=== PATIENT | male | born 1985 | race Caucasian/White ===

== ENCOUNTER 2020-04-20 11:45 | Emergency (ER) | payer OTHER, SELFPAY ==
--- NOTE | 2020-04-20 11:52 | ED.URI ---
HPI - URI/Sore Throat General Chief Complaint: Skin/Abscess/Foreign Body Stated Complaint: INFECTION Source: patient Mode of arrival: ambulatory Limitations: no limitations History of Present Illness HPI Narrative: Patient is a 35-year-old male who presents complaining of infection to right forearm. He is unsure if it may be started out as a bug bite, reports redness and tenderness x1 day, increasing this a.m. He denies taking nkec-guc-vpiywau medications for pain or using topical creams. Patient reports family history of MRSA, but states he has never had MRSA himself. MD elicited complaint: other (insect bite) Related Data Allergies Allergy/AdvReac Type Severity Reaction Status Date / Time No Known Allergies Allergy Verified 04/20/20 11:54 Review of Systems Review of Systems: Narrative: CONSTITUTIONAL: Denies fever, chills, or sweats. EYES: Denies visual changes, redness, or discharge. ENT: Denies rhinorrhea, congestion, sore throat, or otalgia. CARDIOVASCULAR: Denies chest pain, palpitations, or edema. RESPIRATORY: Denies cough or dyspnea. GASTROINTESTINAL: Denies abdominal pain, nausea, vomiting, or diarrhea. GENITOURINARY: Denies dysuria or hematuria. SKIN: Redness and tenderness to right forearm MUSCULOSKELETAL: Denies back pain, joint pain, or myalgia. NEUROLOGIC: Denies headache, numbness, dizziness, or weakness. PSYCHIATRIC: Denies anxiety or depression. PMFSH Past Medical History Medical History (Updated 04/20/20 @ 12:10 by ANTONIO Jensen) No significant past medical history Surgical History Surgical History (Updated 04/20/20 @ 12:02 by ANTONIO Jensen) No significant past surgical history Family History Family History (Updated 04/20/20 @ 12:03 by ANTONIO Jensen) Mother MRSA infection Social History Social History (Updated 04/20/20 @ 12:04 by ANTONIO Jensen) Smoking status: Never smoker Alcohol intake: current Alcohol use details: socially Substance use: never Living arrangements: with family Exam Narrative: Exam Narrative: GENERAL: Well-appearing, well-nourished, and in no acute distress. HEAD: Normocephalic, atraumatic. EYES: No redness or drainage. Conjunctiva are normal. ENT: Mucous membranes pink and moist. CHEST: No respiratory distress. Clear to auscultation. HEART: Regular rate and rhythm. No murmur appreciated. Normal peripheral pulses. EXTREMITIES: Normal range of motion. No edema. SKIN: Approximate 7 cm circular area of erythema and edema to right forearm, no drainage noted NEURO: No focal deficits. Alert and oriented x3. Gait steady. PSYCH: Normal affect. No signs of depression or anxiety. Course Vital Signs Vital signs: Vital signs reviewed with patient. Patient hypertensive and tachycardic. Patient denies having PCP at this time. PCP referral given to patient. Patient instructed to follow-up with PCP about blood pressure within 3 days. MDM - URI/Sore Throat MDM Narrative Medical decision making narrative: Patient appears to have a 7 cm diameter area of cellulitis to right forearm. Patient to be treated with antibiotics at this time. Patient reports a strong family history of MRSA in individuals he lives with. No pustules or drainage noted. Patient to be treated with Keflex and to follow-up with PCP for arm as well as hypertension. Patient is stable for discharge at this time with patient follow-up within 3 days. Differential Diagnosis Differential diagnosis: Likely other (Cellulitis) Critical Care Time Critical Care Time Critical Care Time: No Discharge Plan Discharge Clinical Impression: Cellulitis Qualifiers: Site of cellulitis: extremity Site of cellulitis of extremity: upper extremity Laterality: right Qualified Code(s): L03.113 - Cellulitis of right upper limb Patient Disposition: Home, Self-Care Condition: Stable Instructions: Antibiotic Form, Cellulitis (ED) Additional Instructions: Take antibiotic
[2020-04-20 11:54] VITALS: BP 187/135; PULSE 122; RESP 20; TEMP 36.1; O2SAT 98
[2020-04-20 12:19] VITALS: BP 181/128; PULSE 111
== END 2020-04-20 12:23 | disposition home or self-care (01) ==
PROVIDERS: Emergency Provider Nurse Practitioner
DX: L03.113 Cellulitis of right upper limb (principal)
CPT/HCPCS: 99213; G0463

== ENCOUNTER 2022-03-18 12:55 | Emergency (ER) | payer OTHER, SELFPAY ==
--- NOTE | ~2022-03-18 | XR_ITS ---
EXAMINATION: XR elbow RT min 3V DATE: 03/18/2022 13:27 INDICATION: Right elbow pain post fall TECHNIQUE: Anteroposterior, two oblique and lateral views of the right elbow were obtained. COMPARISON: None. FINDINGS: Alignment is normal. No fracture. Mild osteoarthritis at the right elbow with mild nonuniform joint s pace narrowing at the ulnotrochlear articulation and small marginal osteophyte at the tip of the will noid process. No right elbow joint effusion.. Soft tissues are unremarkable. IMPRESSION: 1. No right elbow joint effusion or acute osseous abnormality. Reviewed, dictated and finalized at location A.
[2022-03-18 13:52] VITALS: BP 169/80; PULSE 128; RESP 24; TEMP 36.7; O2SAT 100
--- NOTE | 2022-03-18 15:57 | ED.UPPEXIN ---
HPI - Extremity Injury (Upper) General Chief Complaint: Extremity Injury, Upper Stated Complaint: fall,right arm pain History of Present Illness HPI narrative: 37-year-old male presents the emergency room for evaluation of right elbow pain. Patient states that he tripped and fell landing on his right elbow immediately prior to arrival. States the pain is worse when trying to extend the arm and with supination and pronation. States pain radiates into his right forearm. Did not take any medications prior to arrival to alleviate his symptoms. Related Data Allergies Allergy/AdvReac Type Severity Reaction Status Date / Time No Known Allergies Allergy Verified 04/20/20 11:54 Review of Systems Review of Systems: CONSTITUTIONAL: Denies fever, chills, or sweats. EYES: Denies visual changes, redness, or discharge. ENT: Denies rhinorrhea, congestion, sore throat, or otalgia. CARDIOVASCULAR: Denies chest pain, palpitations, or edema. RESPIRATORY: Denies cough or dyspnea. GASTROINTESTINAL: Denies abdominal pain, nausea, vomiting, or diarrhea. GENITOURINARY: Denies dysuria or hematuria. SKIN: Denies rash or itching. MUSCULOSKELETAL: Reports right elbow pain NEUROLOGIC: Denies headache, numbness, dizziness, or weakness. PSYCHIATRIC: Denies anxiety or depression. PMFSH Past Medical History Medical History No significant past medical history Surgical History Surgical History No significant past surgical history Family History Family History Mother MRSA infection Social History Social History Smoking status: Never smoker Alcohol intake: current Alcohol use details: socially Substance use: never Exam Narrative: GENERAL: Well-appearing, well-nourished, no physical limitations, and in no acute distress. HEAD: Normocephalic, atraumatic. EYES: Conjunctivae normal, PERRLA and EOMI. CHEST: Clear to auscultation. No respiratory distress. No wheezes rales or rhonchi. No tenderness. HEART: Regular rate and rhythm. No murmur heard. Normal peripheral pulses. EXTREMITIES: Right elbow: Tenderness extending from the olecranon process to the mid forearm. No bony abnormality noted no soft tissue swelling or ecchymosis. Pain elicited with extension and pronation supination. Neurovascular is intact distally SKIN: Warm, dry, no rash. No noted wounds NEURO: No focal deficits. Alert and oriented x3. MAEW. CN's II-XI intact bilaterally, normal gait PSYCH: Cooperative. Normal mood and affect. Course Vital Signs Vital signs: Vital Signs Temperature 36.7 C 03/18/22 13:52 Pulse Rate 128 H 03/18/22 13:52 Respiratory Rate 24 H 03/18/22 13:52 Blood Pressure 169/80 H 03/18/22 13:52 Pulse Oximetry 100 03/18/22 13:52 Oxygen Delivery Room Air 03/18/22 13:52 Temperature 36.7 C 03/18/22 13:52 Pulse Rate 128 H 03/18/22 13:52 Respiratory Rate 24 H 03/18/22 13:52 Blood Pressure 169/80 H 03/18/22 13:52 Pulse Oximetry 100 03/18/22 13:52 Oxygen Delivery Room Air 03/18/22 13:52 Discharge Plan Discharge Clinical Impression: Contusion of elbow, right Patient Disposition: Home, Self-Care Condition: Stable Instructions: Antibiotic Form, Contusion in Adults (ED) Prescriptions: New naproxen 500 mg tablet,delayed release (DR/EC) 500 mg PO BID Qty: 14 0RF No Action cephalexin [Keflex] 500 mg capsule 500 mg PO Q6H 5 Days Qty: 20 0RF Follow-up/Referrals: PHYSICIAN,SENSITOMETRIST [Primary Care Provider] - Time of Disposition: 16:03
[2022-03-18] MEDS: KETOROLAC (*BKC) 60 MG/2 ML VIAL IM (16:24)
== END 2022-03-18 16:43 | disposition home or self-care (01) ==
LOC: ANHED 16:24
PROVIDERS: Emergency Provider Nurse Practitioner Family
DX: S50.01XA Contusion of right elbow, initial encounter (principal); W01.0XXA Fall on same level from slipping, tripping and stumbling without subsequent striking against object, initial encounter
CPT/HCPCS: 73080; 96372; 99283; J1885

== ENCOUNTER 2023-02-12 10:15 | Outpatient (CLI) | payer OTHER, SELFPAY ==
--- NOTE | 2023-02-16 14:43 | WPDHOMESLEEP ---
Sleep Study - Home Unattended Date of Study: 02/12/23 Ordering Provider: Angel Llamas, [employer]ING [employer]QUIPMENT OPERATOR Interpreting Provider: Casie Collier, DO Home Sleep Study Type: Watch PAT Height: 1.93 m Weight: 260.816 kg Body Mass Index: 69.9 Neck Circumference (inches): 22.5 [place]: 17 Reason for Sleep Study Difficulty sleeping through the night Sleep History The patient is a 37-year-old male with hypertension, hypothyroidism, depression, anxiety and diabetes that had a sleep study ordered by his primary care for evaluation of sleep apnea. The patient rarely awakens from sleep short of breath. He denies awakening at night with heartburn, belching or cough. He frequently snores and is occasionally loud enough others complain. He occasionally has trouble sleeping when he has a cold. He rarely wakes up gasping for air throughout the night. He occasionally has breathing problems at night observed by himself or others. He occasionally sweats excessively at night. He occasionally has heart palpitations or irregular heartbeats during the night. He frequently falls asleep during the day and occasionally falls asleep while driving. He denies sleep paralysis, cataplexy and hypnagogic / hypnopompic hallucinations. He constantly has trouble at school or work due to sleepiness. He denies feeling afraid of going to sleep. He rarely has nightmares. He occasionally remembers his dreams. He frequently has thoughts racing through his mind. He frequently feels sad or depressed. He constantly has anxiety. He rarely has muscular tension. He denies noticing parts of his body jerk. He denies kicking during the night. He rarely has crawling and aching feelings in his legs and rarely has leg pain during the night. He denies grinding his teeth during sleep and denies awakening with morning jaw pain. He denies being bothered by pain during the day and denies being awakened by pain during the night. He rarely wakes up feeling stiff in the morning. He rarely wakes up with sore or achy muscles. He denies waking up with pain in the neck, spine and other joints. The patient goes to bed at midnight on both weekdays and weekends. It can take him up to 2 hours to fall asleep. He wakes up 3-4 times throughout the night to urinate and it takes him 5-15 minutes to fall asleep. He wakes up between 6-630 a.m. on weekdays and at 8:00 a.m. on the weekends. He typically gets 3-4 hours of sleep per night. He will stay in bed for 30 minutes after waking up in the morning. He currently lives with his grandmother. He does not consume any caffeinated beverages within 2 hours of bedtime. He does not engage in physical exercise before bedtime. He will watch television before falling asleep. He will take naps in the afternoon or the evening but they are not refreshing. He consumes diet sodas with males. He denies tobacco, alcohol and recreational drug use. [facility] Past Medical History Medical History No significant past medical history Surgical History Surgical History No significant past surgical history Family History Family History Mother MRSA infection Social History Social History Smoking status: Never smoker Alcohol intake: current Alcohol use details: socially Substance use: never Living arrangements: with family Medications Home Medications Medication Instructions Recorded Confirmed Type cephalexin 500 mg capsule (Keflex) 500 mg PO Q6H 5 days #20 caps 04/20/20 Rx naproxen 500 mg tablet,delayed 500 mg PO BID #14 tabs 03/18/22 Rx release Sleep Procedure The sleep study was completed using [employer] a technically adequate device with seven channels: peripheral arterial tone, actigraphy, body position, snore, respi
[2023-02-16 18:01] VITALS: BMI 69.9
== END 2023-02-13 15:24 | disposition home or self-care (01) ==
LOC: ANHCSM 10:16
PROVIDERS: Visit Provider Nurse Practitioner Family
DX: G47.33 Obstructive sleep apnea (adult) (pediatric) (principal); I10 Essential (primary) hypertension; E03.9 Hypothyroidism, unspecified; F41.8 Other specified anxiety disorders; E11.9 Type 2 diabetes mellitus without complications
CPT/HCPCS: 95800

== ENCOUNTER 2024-03-31 08:26 | Emergency (ER) | payer OTHER, SELFPAY ==
--- NOTE | ~2024-03-31 | US_ITS ---
EXAMINATION: US soft tissue buttock RT DATE: 03/31/2024 13:00 INDICATION: Right buttock abscess TECHNIQUE: Multiple grayscale and Doppler ultrasound images of the right buttock were obtained. COMPARISON: None FINDINGS: There is reticulated pattern of subcutaneous edema extends peripherally from approximately 3 x 1.5 cm region of more hypoechoic likely phlegmonous change in the superficial subcutaneous tissues at the r egion of concern. No organized abscess. And hyperemia with increased vascular flow on color Doppler i n the surrounding subcutaneous fat. IMPRESSION: 1. Likely cellulitis surrounding a 3 x 1.5 cm region of phlegmonous change at the region of concern b ut without a well-defined organized abscess. Reviewed, dictated and finalized at location B. IMPRESSION: 1. Likely cellulitis surrounding a 3 x 1.5 cm region of phlegmonous change at t he region of concern but without a well-defined organized abscess.
[2024-03-31 08:33] VITALS: BP 144/74; PULSE 128; RESP 20; TEMP 36.9; O2SAT 95
--- NOTE | 2024-03-31 10:24 | ED.WOUNDLAC ---
HPI - Wound/Laceration General Chief Complaint: Wound/Laceration <Alma Rosa Grimes PA-C - Last Filed: 03/31/24 18:16> Stated Complaint: wound right buttocks <Alma Rosa Grimes PA-C - Last Filed: 03/31/24 18:16> Time Seen by Provider: 03/31/24 10:24 <Alma Rosa Grimes PA-C - Last Filed: 03/31/24 18:16> Focused HPI: This is a 39 year old male that presents to the ER for an area of redness and swelling to the right buttock. Started about a week and a half ago. Has been on Doxycycline for about a week without any improvement. Went to see a popcorn candy maker today who sent him to the ER. Denies fever or drainage. GENERAL: Well-appearing, well-nourished, and in no acute distress. HEAD: Normocephalic, atraumatic. CHEST: Clear to auscultation. ?No respiratory distress. HEART: Regular rhythm, tachycardic NEURO: ?Alert and oriented x3. Patient screened in triage and initial orders placed.? ?Additional care and disposition to be based upon?diagnostic testing and treatment. <Alma Rosa Grimes PA-C - Last Filed: 03/31/24 18:16> Related Data Allergies/Adverse Reactions: Allergies Allergy/AdvReac Type Severity Reaction Status Date / Time No Known Allergies Allergy Verified 03/18/22 16:23 <Alma Rosa Grimes PA-C - Last Filed: 03/31/24 18:16> Review of Systems Review of Systems: CONSTITUTIONAL: Denies fever GASTROINTESTINAL: Denies abdominal pain, nausea, vomiting SKIN: Reports redness and swelling <Alma Rosa Grimes PA-C - Last Filed: 03/31/24 18:16> All systems reviewed & are unremarkable except as noted in HPI and below <Alma Rosa Grimes PA-C - Last Filed: 03/31/24 18:16> PMFSH Past Medical History Medical History: Medical History (Updated 03/31/24 @ 18:08 by Alma Rosa Grimes PA-C) History of hypertension History of hypothyroidism KAREEN (obstructive sleep apnea) <Alma Rosa Grimes PA-C - Last Filed: 03/31/24 18:16> Surgical History Surgical History: Surgical History No significant past surgical history <Alma Rosa Grimes PA-C - Last Filed: 03/31/24 18:16> Family History Family History: Family History Mother MRSA infection <Alma Rosa Grimes PA-C - Last Filed: 03/31/24 18:16> Social History Social History: Social History Smoking status: Never smoker Alcohol intake: current Alcohol use details: socially Substance use: never Living arrangements: with family <Alma Rosa Grimes PA-C - Last Filed: 03/31/24 18:16> Exam Narrative: GENERAL: Well-appearing, well-nourished, and in no acute distress. HEAD: Normocephalic, atraumatic. EYES: EOMI. CHEST: Clear to auscultation. No respiratory distress. No wheezes rales or rhonchi HEART: Regular rhythm, tachycardic. No murmur heard. Normal peripheral pulses. EXTREMITIES: Normal range of motion. No edema. SKIN: Warm, dry, no rash. NEURO: No focal deficits. Alert and oriented x3. PSYCH: Normal mood and affect RECTAL: Right buttock into the rectum with large area of erythema and induration with an area of fluctuance <Alma Rosa Grimes PA-C - Last Filed: 03/31/24 18:16> Course Course Emergency Course: Patient updated on workup and need for transfer for higher level of care <Alma Rosa Grimes PA-C - Last Filed: 03/31/24 18:16> PRINCIPAL GIFTS OFFICER/PA Physician Supervision This visit was performed by both a physician and an APC. I performed all aspects of the MDM as documented. LRINEC score of 10, high risk nec fasc, surgery at bedside recommending transfer, accepted at [facility]. <Reji Whitfield MD - Last Filed: 03/31/24 19:37> Consultations Consultation #1: Spoke with Dr. Reilly who came down to the ER to evaluate patient. Recommends transfer to tertiary care facility for possible necrotizing fasciitis <Alma Rosa Grimes PA-C - Last Filed: 03/31/24 18:16> Date:
[2024-03-31 11:22] LABS: Basophils Absolute Auto 0.1 K/mm3 (0.0-0.1); Basophils Percent Auto 0.6 % (0.2-1.2); Eosinophils Absolute Auto 0.3 K/mm3 (0-0.3); Eosinophils Percent Auto 1.6 % (0-4.4); Hematocrit 40.7 % (42.0-52.0); Hemoglobin 13.1 g/dL (14.0-18.0); Immature Granulocyte Absolute 0.23 K/mm3 (0.00-0.031); Immature Granulocyte Percent A 1.2 % (0-0.5); Lymphocytes Absolute Auto 1.18 K/mm3 (0.9-3.2); Lymphocytes Percent Auto 6.1 % (18.3-44.2); Mean Corpuscular HGB Conc 32.2 g/dl (32-36); Mean Corpuscular Hemoglobin 27.4 pg (26-34); Mean Corpuscular Volume 85.1 fl (80-100); Mean Platelet Volume 9.3 fl (7.4-10.4); Monocytes Absolute Auto 1.4 K/mm3 (0.1-0.6); Monocytes Percent Auto 7.1 % (2.6-8.5); Neutrophils Absolute Auto 16.1 K/mm3 (1.3-6.7); Neutrophils Percent Auto 83.4 % (45.5-73.1); Platelet Count Result 617 k/mm3 (150-375); Red Blood Count 4.78 M/mm3 (4.6-6.20); Red Cell Distribution Width 12.8 % (11.5-14.5); White Blood Count 19.3 K/mm3 (4.5-10.0)
[2024-03-31 11:31] LABS: Lactic Acid Reflex 1.7 mmol/L (0.7-2.0)
[2024-03-31 11:39] LABS: Anion Gap 11 mmol/L (4-12); Blood Urea Nitrogen 23 mg/dL (9-20); Calcium 9.4 mg/dL (8.4-10.2); Carbon Dioxide 28 mmol/L (22-30); Chloride 92 mmol/L (98-107); Estimated CRCL calculation 114 ml/min; Estimated Glomerular Filt Rate 42; Glucose 134 mg/dL (65-110); Potassium 3.9 mmol/L (3.4-5.0); Sodium 131 mmol/L (137-145)
[2024-03-31 11:46] LABS: CRP 19.2 mg/dL (<1.0)
[2024-03-31] MEDS: SODIUM CHLORIDE 0.9% IV 1,000 ML 999 ML IV CONT ×2 (12:00→14:16)
[2024-03-31 13:36] LABS: Erythrocyte Sedimentation Rate 19 mm/hr (0-20)
[2024-03-31 14:08] VITALS: BP 113/68; PULSE 112; RESP 18; TEMP 37.3; O2SAT 96
[2024-03-31] MEDS: ACETAMINOPHEN 500 MG TABLET 1000 MG PO (14:22)
[2024-03-31] MEDS: CEFEPIME 2 GM/NS 50 ML 2 GM/50 ML BAG IVPB (14:23)
[2024-03-31] MEDS: metroNIDAZOLE 500 MG/ISO 100ML 500 MG/100 ML BAG 100 MG IVPB (14:41)
--- NOTE | 2024-03-31 15:25 | PM.CNGS ---
Assessment and Plan Assessment and plan (1) Necrotizing soft tissue infection: Code(s): M79.89 - Other specified soft tissue disorders Status: Acute Assessment and Plan: The patient has a large perirectal abscess with dishwater-colored fluid drainage and necrotic skin over the abscess. This tunnels at least 12 cm deep with a Q-tip on exam and he is exquisitely tender on exam. All of these clinical findings are concerning for a necrotizing soft tissue infection. We would recommend starting broad-spectrum IV antibiotics to cover for this and transfer the patient to a tertiary care facility for surgical management. (2) Perirectal abscess: Code(s): K61.1 - Rectal abscess Status: Acute (3) Morbid obesity with BMI of 70 and over, adult: Code(s): E66.01 - Morbid (severe) obesity due to excess calories; Z68.45 - Body mass index [BMI] 70 or greater, adult Status: Acute Plan I have discussed the patient's case and plan of care with Dr. Reilly. History of Present Illness Consult details Consult date: 03/31/24 Reason for consult: other (Perirectal abscess) Requesting physician: Alma Rosa Grimes PA-C Narrative: This is a 39-year old morbidly obese man with a BMI of 72 who came into the ED today with complaints of perirectal pain, redness, and swelling x 1.5 weeks. He was put on doxycycline for about a week without improvement and went to see a Casino Manager today who sent him to the ED. He is tachycardic in the ED. Labs showed a WBC count of 19,300. He is not able to get a CT scan due to his morbid obesity. He had a bedside incision and drainage by the ED provider. Our service was consulted for the perirectal abscess and he is now seen in the ED with Dr. Reilly. Review of Systems Review of Systems: All systems reviewed & are unremarkable except as noted in HPI and below PMFSH Past Medical History Medical History History of hypertension History of hypothyroidism Surgical History Surgical History No significant past surgical history Family History Family History Mother MRSA infection Social History Social History Smoking status: Never smoker Alcohol intake: current Alcohol use details: socially Substance use: never Living arrangements: with family Meds Home Medications and Allergies Home Medications Medication Instructions Recorded Confirmed Type cephalexin 500 mg capsule (Keflex) 500 mg PO Q6H 5 days #20 caps 04/20/20 Rx naproxen 500 mg tablet,delayed 500 mg PO BID #14 tabs 03/18/22 Rx release Allergies Allergy/AdvReac Type Severity Reaction Status Date / Time No Known Allergies Allergy Verified 03/18/22 16:23 Vital Signs Vital Signs - 24 hr 03/31/24 08:33 03/31/24 14:08 Temperature 98.4 F 99.2 F Pulse Rate 128 H 112 H Respiratory Rate 20 18 Blood Pressure 144/74 H 113/68 Pulse Oximetry 95 96 Oxygen Delivery Room Air Exam Const: General: comfortable and no acute distress Nutritional Appearance: obese morbidly obese Orientation/consciousness: patient oriented x3 HENMT: Head: normocephalic and atraumatic Ears: hearing grossly normal bilaterally Mouth: Yes moist mucous membranes Eyes: General: appearance normal, both eyes and all related structures Pupils: Equal, round and reactive pupils present Neck: Neck: normal visual inspection and full ROM Resp: Effort & Inspection: no respiratory distress Auscultation: clear to auscultation bilaterally Cardio: Rate: regular rate Rhythm: regular rhythm GI: Inspection: Pannus present and obesity GI Palp: Yes Soft to palpation, No Tenderness to palpation present (GI), No Guarding due to palpation present (GI) and No Rebound tenderness present Auscultation: normal bowel sound
[2024-03-31 15:37] VITALS: BP 104/63; PULSE 108; RESP 18; O2SAT 94
[2024-03-31] MEDS: VANCOMYCIN 1,250 MG/NS 250 ML 1,250 MG/250 ML BAG 166.67 MG IVPB ×2 (15:37→18:22)
[2024-03-31 16:08] LABS: Hemoglobin A1C 5.9 % (<5.7)
[2024-03-31 16:10] VITALS: BP 116/75; PULSE 74; RESP 15; O2SAT 98
--- NOTE | 2024-03-31 16:21 | PM.IMHP ---
H&P: HPI History of Present Illness Date/Time: 03/31/24 16:21 Chief Complaint: Wound Narrative: 39 y/o M presents here with wound to right buttock with PMH of hypertension, KAREEN, and hypothyroidism. The patient presents here from home for further evaluation of a a wound/abscess to his right buttock. Patient develops symptoms approximately 1.5 weeks ago. Patient initially sought care with his PCP last week prescribed him doxycycline 100 mg b.i.d.. Patient reports no improvement with outpatient p.o. antibiotics. Area is red, painful to the touch, and swollen per patient. Due to area not improving he sought care with his transport nurse who directed him to the ED for further evaluation. No accompanying fever, chills, body aches, or drainage from site. Patient arrived to the emergency department tachycardic in the mid 120s, no accompanying hypotension. Initial VS at presentation: 98.4? F, HR 128, RR 20, 144/74, and 95% on RA. ED workup showed: WBC 19.3, hemoglobin 13.1, creatinine 1.8 and GFR 42) no previous available for comparison), A1c 5.9%, and CRP 19.2. Soft tissue ultrasound of site showed likely cellulitis surrounding a 3 x 1.5 cm region of phlegmonous changes at the region of concern but without a well-defined organized abscess. Review of Systems Review of Systems: All systems reviewed & are unremarkable except as noted in HPI and below PMFSH Past Medical History Medical History (Updated 03/31/24 @ 16:32 by Maria Fernanda Shaw APRN) History of hypertension History of hypothyroidism KAREEN (obstructive sleep apnea) Surgical History Surgical History No significant past surgical history Family History Family History Mother MRSA infection Social History Social History Smoking status: Never smoker Alcohol intake: current Alcohol use details: socially Substance use: never Living arrangements: with family Meds Home Medications and Allergies Home Medications Medication Instructions Recorded Confirmed Type cephalexin 500 mg capsule (Keflex) 500 mg PO Q6H 5 days #20 caps 10/02/20 Rx naproxen 500 mg tablet,delayed 500 mg PO BID #14 tabs 03/18/22 Rx release Allergies Allergy/AdvReac Type Severity Reaction Status Date / Time No Known Allergies Allergy Verified 03/18/22 16:23 Vital Signs Vital Signs - 24 hr 03/31/24 08:33 03/31/24 14:08 03/31/24 15:37 Temperature 98.4 F 99.2 F Pulse Rate 128 H 112 H 108 H Respiratory Rate 20 18 18 Blood Pressure 144/74 H 113/68 104/63 Pulse Oximetry 95 96 94 Oxygen Delivery Room Air 03/31/24 16:10 Temperature Pulse Rate 74 Respiratory Rate 15 Blood Pressure 116/75 Pulse Oximetry 98 Oxygen Delivery H&P: Results Labs Labs: Short CBC 03/31/24 Range/Units 11:13 WBC 19.3 H (4.5-10.0) K/mm3 Hgb 13.1 L (14.0-18.0) g/dL Hct 40.7 L (42.0-52.0) % Plt Count 617 H (150-375) k/mm3 BMP 03/31/24 11:13 Sodium 131 L Potassium 3.9 Chloride 92 L Carbon Dioxide 28 BUN 23 H Creatinine 1.80 H Glucose 134 H Calcium 9.4 Assessment and Plan Assessment and plan (1) Sepsis: Qualifiers: Sepsis type: sepsis due to unspecified organism Sepsis acute organ dysfunction status: without acute organ dysfunction Qualified Code(s): A41.9 - Sepsis, unspecified organism Code(s): A41.9 - Sepsis, unspecified organism Status: Acute Assessment and Plan: - meets SIRS criteria: HR, WBC - lactic acid: 1.7 - 30 mL/kg = 8.1L, given 2 L bolus - suspected source: Right buttock wound - started on meropenem, clindamycin, vancomycin - blood cultures drawn on 03/31 (2) Perirectal abscess: Code(s): K61.1 - Rectal abscess Status: Acute Assessment and Plan: - US of soft tissue of right buttoc
[2024-03-31 17:31] VITALS: BP 117/76; PULSE 90; RESP 20; TEMP 36.7; O2SAT 94
[2024-03-31] MEDS: MEROPENEM 1 GM/NS 100 ML 1 GM/100 ML BAG IVPB (17:50)
[2024-03-31] MEDS: CLINDAMYCIN 900 MG/D5W 50 ML 900 MG/50 ML PIGGYBACK 50 MG IVPB (18:15)
[2024-03-31 18:18] VITALS: BP 107/78; PULSE 102; RESP 18; O2SAT 95
== END 2024-03-31 18:30 | disposition short-term general hospital (02) ==
PROVIDERS: Emergency Provider Physician Assistant; PCP Nurse Practitioner Family
DX: M72.6 Necrotizing fasciitis (principal); L03.317 Cellulitis of buttock; I10 Essential (primary) hypertension; E03.9 Hypothyroidism, unspecified; Z79.899 Other long term (current) drug therapy
CPT/HCPCS: 10061; 36415; 76705; 80048; 83036; 83605; 85025; 85652; 86140; 87040; 87070; 87081; 87181; 87205; 96361; 96365; 96366; 96367; 96368; 96375; 99285; A9270; J0692; J1836; J2185; J3370; J7030